=== PATIENT | male | born 1990 | race Two or more races ===

== ENCOUNTER 2021-07-02 23:35 | Emergency (ER) | payer MEDICAID, OTHER ==
[~2021-07-02] VITALS: Ht 185.4 cm; Wt 79.4 kg
[2021-07-03] MEDS ORDERED: ACETAMINOPHEN 500 MG TAB PO ONE
[2021-07-03 04:27] VITALS: BP 114/77
== END 2021-07-03 06:30 | disposition home or self-care (01) ==
LOC: EDBD 23:35 → ER 23:42
DX: U07.1 COVID-19 (principal); J02.9 Acute pharyngitis, unspecified; F17.210 Nicotine dependence, cigarettes, uncomplicated
CPT/HCPCS: 36415; 71045; 87426